=== PATIENT | male | born 1980 | race Caucasian/White ===

== ENCOUNTER 2018-10-06 15:25 | Emergency (ER) | payer MEDICAID, OTHER ==
[~2018-10-06] VITALS: Ht 175.3 cm; Wt 53.1 kg
--- NOTE | 2018-10-06 15:28 | NUR ---
PT PRESENTED TO THE ER WITH A C/O RLE (BELOW THE KNEE) REDNESS, PAIN, WARM TO TOUCH. PT AMBULATED TO ER 16 WITH A STEADY GAIT. PT STATED THAT HE HAS 7/10 PAIN WITH AMBULATION. PT IS SLIGHTLY TACHY AT 128.
[2018-10-06 16:23] VITALS: BP 145/96
== END 2018-10-06 16:20 | disposition home or self-care (01) ==
LOC: ER 15:28
DX: L03.115 Cellulitis of right lower limb (principal)
CPT/HCPCS: 99283; A4606

== ENCOUNTER 2019-02-10 09:30 | Emergency (ER) | payer OTHER ==
[~2019-02-10] VITALS: Ht 175.3 cm; Wt 83.0 kg
--- NOTE | 2019-02-10 09:33 | NUR ---
CALLED IN WAITING ROOM, Addendum: 02/10/19 at 3656 by OTTO CALLED TO TRIAGE, PER ADMITTING, PT WENT OUT
[2019-02-10 09:40] VITALS: BP 122/76
--- NOTE | 2019-02-10 09:40 | NUR ---
CAME IN FOR LFA LACERATION "TRIPPED AND FELL WHILE MOVING A TILE". TO ER BED 1, HOOKED TO MONITOR, AWAITING MD JEAN.
--- NOTE | 2019-02-10 09:41 | NUR ---
TETANUS SHOT UPDATED
[2019-02-10] MEDS ORDERED: LIDOCAINE 1% INJ 50 ML MDV IJ ONE (09:58)
[2019-02-10] MEDS ORDERED: LIDOCAINE 1%-EPI 1:100,000 20 ML VIAL TP ONE (10:00)
== END 2019-02-10 10:42 | disposition home or self-care (01) ==
LOC: ER 09:44
DX: S51.812A Laceration without foreign body of left forearm, initial encounter (principal); W26.8XXA Contact with other sharp object(s), not elsewhere classified, initial encounter; W01.118A Fall on same level from slipping, tripping and stumbling with subsequent striking against other sharp object, initial encounter; Y93.89 Activity, other specified; Y92.89 Other specified places as the place of occurrence of the external cause; Y99.8 Other external cause status
CPT/HCPCS: 12004; 99283; A6402; A6403; J3490

== ENCOUNTER 2019-02-22 20:06 | Emergency (ER) | payer OTHER ==
[~2019-02-22] VITALS: Ht 175.3 cm; Wt 83.9 kg
[2019-02-22 20:25] VITALS: BP 145/86
--- NOTE | 2019-02-22 20:29 | NUR ---
DR ROJO IS AT THE BEDSIDE FOR STAPLE REMOVAL.
--- NOTE | 2019-02-22 20:38 | NUR ---
Patient discharged to home in stable condition. Written and verbal after care instructions given. Patient verbalizes understanding of instruction AND RX. PT AMBULATED OUT WITH A STEADY GAIT.
== END 2019-02-22 20:38 | disposition home or self-care (01) ==
LOC: ER 20:14
DX: S51.012D Laceration without foreign body of left elbow, subsequent encounter (principal); W18.09XD Striking against other object with subsequent fall, subsequent encounter

== ENCOUNTER 2019-03-21 17:39 | Emergency (ER) | payer OTHER ==
[~2019-03-21] VITALS: Ht 175.3 cm; Wt 83.9 kg
[2019-03-21 18:07] VITALS: BP 116/63
[2019-03-21] MEDS ORDERED: MUPIROCIN OINT 2% 22 GM TUBE ONE (18:27)
[2019-03-21] MEDS ORDERED: MUPIROCIN OINT 2% 22 GM TUBE TP ONE (18:30)
== END 2019-03-21 18:48 | disposition home or self-care (01) ==
LOC: ER 17:45
DX: S41.112D Laceration without foreign body of left upper arm, subsequent encounter (principal); L08.9 Local infection of the skin and subcutaneous tissue, unspecified; X58.XXXD Exposure to other specified factors, subsequent encounter
CPT/HCPCS: 99283; A6403